=== PATIENT | male | born 1970 | race Hispanic/Latino ===

== ENCOUNTER 2021-12-15 14:59 | Emergency (ER) | payer MEDICARE ==
[~2021-12-15] VITALS: Ht 167.6 cm; Wt 101.2 kg
[2021-12-15] MEDS ORDERED: KETOROLAC TROMETHAMINE 60 MG/2 ML VIAL IM ONE (15:15)
[2021-12-15] MEDS ORDERED: HYDROCODONE/APAP 5MG-325MG TAB PO ONE (15:15)
[2021-12-15 17:17] VITALS: BP 147/96
== END 2021-12-15 17:17 | disposition home or self-care (01) ==
LOC: ER 15:12
DX: R07.89 Other chest pain (principal); I10 Essential (primary) hypertension; Z85.038 Personal history of other malignant neoplasm of large intestine
CPT/HCPCS: 71101; 99283; J1885

== ENCOUNTER 2022-03-18 08:10 | Emergency (ER) | payer MEDICARE ==
[~2022-03-18] VITALS: Ht 167.6 cm; Wt 103.4 kg
[2022-03-18] MEDS ORDERED: Morphine 4mg INJECTION 4 MG/ML INJ IV ONE (08:30)
[2022-03-18 08:32] LABS: BASOPHILS # (AUTO) 0.1 (0.0-0.1); BASOPHILS % 0.8 % (0.0-1.0); EOSINOPHILS # (AUTO) 0.2 (0.0-0.4); EOSINOPHILS % 2.4 % (0.0-6.0); HEMATOCRIT 53.8 % (38.2-49.6); HEMOGLOBIN 18.6 g/dL (14.0-18.0); LYMPHOCYTES # (AUTO) 0.9 (1.0-3.2); LYMPHOCYTES % 14.2 % (18.0-39.1); MEAN CORPUSCULAR HEMOGLOBIN 34.8 pg (28-32); MEAN CORPUSCULAR HGB CONC 34.6 g/dL (31-35); MEAN CORPUSCULAR VOLUME 100.6 fL (81-99); MONOCYTES # (AUTO) 0.6 (0.2-0.8); MONOCYTES % 9.2 % (4.4-11.3); NEUTROPHILS # (AUTO) 4.6 (2.1-6.9); NEUTROPHILS % 72.8 % (38.7-80.0); PLATELET COUNT 120 x10e3/uL (140-360); RED BLOOD COUNT 5.35 x10e6/uL (4.3-5.7); RED CELL DISTRIBUTION WIDTH 12.6 % (11.7-14.4)
[2022-03-18] MEDS ORDERED: SODIUM CHLORIDE 0.9% 1000ML 1,000 ML ONE (08:38)
[2022-03-18 08:52] LABS: ALBUMIN 3.3 g/dL (3.5-5.0); ALBUMIN/GLOBULIN RATIO 0.8 (0.8-2.0); CALCIUM 9.4 mg/dL (8.4-10.2); CREATININE, SERUM 0.91 mg/dL (0.72-1.25)
[2022-03-18] MEDS ORDERED: IOPAMIDOL 370 MG/ML 100 ML INFUS..BTL INJ ONE (09:22)
[2022-03-18 10:13] LABS: CLARITY,URINE CLEAR (CLEAR); COLOR,URINE YELLOW (YELLOW)
[2022-03-18 10:14] LABS: KETONES,URINE NEGATIVE (NEGATIVE); LEUKOCYTE ESTERASE ,URINE NEGATIVE (NEGATIVE); NITRITE,URINE NEGATIVE (NEGATIVE); PROTEIN,URINE DIPSTICK NEGATIVE (NEGATIVE); URINE UROBILINOGEN 1 mg/dL (0.2 - 1)
[2022-03-18 11:03] LABS: BACTERIA,URINE FEW /HPF; EPITHELIAL CELLS,URINE FEW /LPF; RBC,URINE 0-5 /HPF (0-5); WBC,URINE (MAN) 0-5 /HPF (0-5)
[2022-03-18] MEDS ORDERED: HYDROCODON-ACE1 EA11 PO ×2 (11:06→11:09)
[2022-03-18] MEDS ORDERED: ACETAMINOPHEN-1 EAC4 PO ×2 (11:19→11:26)
[2022-03-18] MEDS ORDERED: NAPROXEN250 MG PO (11:29)
== END 2022-03-18 11:41 | disposition home or self-care (01) ==
LOC: ER 08:13
DX: R10.11 Right upper quadrant pain (principal); C18.9 Malignant neoplasm of colon, unspecified; C78.7 Secondary malignant neoplasm of liver and intrahepatic bile duct; I10 Essential (primary) hypertension
CPT/HCPCS: 36415; 74177; 80053; 81001; 83690; 85025; 93005; 99284; J2270; J7030; Q9967